=== PATIENT | female | born 1995 | race Two or more races ===

== ENCOUNTER 2025-09-21 14:40 | Emergency (ER) | payer BC, SELFPAY ==
[2025-09-21 15:03] VITALS: BP 119/74; PULSE 76; RESP 18; TEMP 36.4; O2SAT 99; BMI 25.1
--- NOTE | 2025-09-21 17:48 | ED_ITS ---
HPI - General Adult General Chief complaint: Skin/Abscess/Foreign Body Stated complaint: rash/ staph infection on butt Time Seen by Provider: 09/21/25 17:48 History of Present Illness HPI narrative: pt here with skin rash to right buttock, history of previous skin infection, she is 14 weeks , care at [facility] in [place], using 2% bactroban that she had already Visit aided by sign deaf interpreter. 30-year-old woman presenting to the emergency department with concern of a rash that has developed on her right buttock. Present now present about 3 days. It dee. She recalls on infection in the same area and looked similar. She does have extra her fallen that seems to show a collection of small blisters. She has applied some antibiotic ointment and a Band-Aid. Has a picture also showing medication taken before which looks to include acyclovir and valacyclovir. Shingles is the familiar prior diagnosis. No swabs were done for confirmation. Currently 14 weeks . No fever. Related Data Home Medications ?Medication ?Instructions ?Recorded ?Confirmed vit no.95-ferrous 1 tab PO DAILY 09/21/25 fumarate 28 mg-folic acid 800 mcg tablet () Previous Rx's ?Medication ?Instructions ?Recorded valacyclovir 1 gram tablet 1,000 mg PO TID 7 days #21 tabs 09/21/25 Allergies Allergy/AdvReac Type Severity Reaction Status Date / Time No Known Drug Allergies Allergy Verified 09/21/25 15:01 Review of Systems Status of ROS: Reports: 6 or more systems reviewed and unremarkable except as noted in History and below PFSH PFS Social History Smoking Status: Never smoker How often do you have a drink containing alcohol: never AUDIT-C Alcohol total score: 0 Non-prescribed substance use: denies use Exam Narrative: Exam Narrative: Pleasant. NAD. Skin is warm and dry. Examination of skin in question at the right mid buttock shows a collection of blisters with mild erythema surrounding them over an area about the size of a quarter. No other lesions identified. Isolated here. Const: Vital Signs, click to edit/add: Vital Signs - 24 hr 09/21/25 15:03 Temperature 97.6 F Pulse Rate [Right Pulse Oximeter] 76 Respiratory Rate 18 Blood Pressure [Ri ght Upper Arm] 119/74 Pulse Oximetry 99 Oxygen Delivery Me thod Room Air Documenting provider has reviewed patient's vital signs: yes Course Vital Signs Vital signs: Initial Vital Signs Temperature 97.6 F 09/21/25 15:03 Temperature Source Temporal Artery Scan 09/21/25 15:03 Pulse Rate 76 09/21/25 15:03 Respiratory Rate 18 09/21/25 15:03 Blood Pressure 119/74 09/21/25 15:03 Blood Pressure Mean 89 09/21/25 15:03 Blood Pressure Position Sitting 09/21/25 15:03 Pulse Oximetry 99 09/21/25 15:03 Oxygen Delivery Method Room Air 09/21/25 15:03 Vital Signs Temperature 97.6 F 09/21/25 15:03 Pulse Rate 76 09/21/25 15:03 Respiratory Rate 18 09/21/25 15:03 Blood Pressure 119/74 09/21/25 15:03 Pulse Oximetry 99 09/21/25 15:03 Oxygen Delivery Method Room Air 09/21/25 15:03 Temperature 97.6 F 09/21/25 15:03 Pulse Rate 66 09/21/25 19:13 Respiratory Rate 18 09/21/25 19:13 Blood Pressure 122/74 09/21/25 19:13 Pulse Oximetry 99 09/21/25 19:13 Oxygen Delivery Method Room Air 09/21/25 19:13 Medications Administered Medications: Discontinued Medications Generic Name Dose Route Start Last Admin Trade Name Freq PRN Reason Stop Dose Admin Valacyclovir HCl 1,000 mg 09/21/25 18:32 09/21/25 19:00 Valacyclovir Hcl 500 Mg Tablet PO 09/21/25 18:33 1,000 mg ONCE ONE Administration Medical Decision Making MDM Narrative Medical decision making narrative: I think this is indeed herpes zoster eruption. Rather small/isolated invol vement of skin. Does not looks to be folliculitis. For confirmation did offer to send viral culture specifically varicella. She would appreciate that being done. I do not see secondary cellulitis. I lanced 2 of the blisters with scalpal and collected clear liquid with viral swab. Also discussed this case with OBGYN. As expected will be treating with valacyclovir. Given dose here in the emergency department prior to departing ER. Given small area of involvement and no prior post herpetic neuralgia, I think can avoid prednisone further in this . See patient discharge plan for further discussion Yes. It does appear that you have shingles. A viral culture is pending to confirm this. Did discuss your case briefly with OBGYN on-call. They are in agreement with the treatment plan. Will be prescribing Valtrex (also known as valacyclovir) partly due to ease of dosing. Unfortunately we do not have any in [facility] and so we will give you a dose here tonight and you can continue early tomorrow morning with the script at the pharmacy. Topically could use antibiotic ointment or even aloe gel. If you need to relieve burning, can also keep some wash cloths in a basin of water in the refrigerator and apply these for some cooling affect. Watch for increasing erythema, thickening of the skin, pain, fever as this might indicate a secondary bacterial infection. Consider this lesion contagious and therefore avoid direct contact with persons who are (of course other than yourself) or persons who are otherwise immunocompromised until all lesions have crusted over Discharge Plan Discharge Clinical Impression: Herpes zoster Patient Disposition: Home, Self-Care Condition: Stable Additional Instructions: Yes. It does appear that you have shingles. A viral culture is pending to confirm this. Did discuss your case briefly with OBGYN on-call. They are in agreement with the treatment plan. Will be prescribing Valtrex (also known as valacyclovir) partly due to ease of dosing. Unfortunately we do not have any in [facility] and so we will give you a dose here tonight and you can continue early tomorrow morning with the script at the pharmacy. Topically could use antibiotic ointment or even aloe gel. If you need to relie ve burning, can also keep some wash cloths in a basin of water in the refrigerator and apply these for some cooling affect. Watch for increasing erythema, thickening of the skin, pain, fever as this might indicate a secondary bacterial infection. Consider this lesion contagious and therefore avoid direct contact with persons who are (of course other than yourself) or persons who are otherwise immunocompromised until all lesions have crusted over Prescriptions: New valacyclovir 1 gram tablet 1,000 mg PO TID 7 Days Qty: 21 1RF No Action PNV no.95-ferrous fumarate-FA [] 28 mg iron- 800 mcg tablet 1 tab PO DAILY Stand Alone Forms: MyHealth Info Instructions
--- OUTSIDE RECORDS SUMMARY | 2025-09-21 18:38 | XMS_ITS | Clinical Summary ---
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 and is used for clinical purposes. Specimen (Source)Anatomical Location / LateralityCollection Method / Volume Collection TimeReceived TimeBloodBLOOD SPECIMEN / UnknownQuest Collect / Unknown 08/20/2025 10:54 AM CST08/20/2025 10:54 AM INFORMATION TECHNOLOGY DIRECTOR Narrative Authorizing ProviderResult TypeResult StatusAntionette Jo Estis CNMLABORATORY Final ResultPerforming OrganizationAddressCity/State/ZIP CodePhone Number [facility] [address] [phone], * TREPONEMA PALLIDUM (08/20/2025 10:54 AM INFORMATION TECHNOLOGY DIRECTOR)ComponentValueRef RangeTest Method Analysis TimePerformed AtPathologist SignatureTREPONEMA PALLIDUMNon-Reactive Non-Stgzyoqe28/11/2025 7:51 PM [facility] Specimen (Source)Anatomical Location / LateralityCollection Method / Volume Collection TimeReceived TimeBloodBLOOD SPECIMEN / UnknownQuest Collect / Yzdurju8508/20/2025 10:54 AM CST08/20/2025 10:54 AM INFORMATION TECHNOLOGY DIRECTOR Narrative Authorizing ProviderResult TypeResult StatusAntioneian Osorio Estis CNMSEND OUTS Final ResultPerforming OrganizationAddressCity/State/ZIP CodePhone Number [facility] [address] [place] [address] * RUBELLA IMMUNE STATUS (08/20/2025 10:54 AM INFORMATION TECHNOLOGY DIRECTOR)ComponentValueRef RangeTest MethodAnalysis TimePerformed AtPathologist SignatureRUBELLA AB (IGG), IMMUNE STATUS5.46Zkzon1908/21/2025 2:31 PM CSTIntegrys AssetPoint DIAGNOSTICSComment: ?Index ?Interpretation ?----- ? <0.90 Not consistent with immunity ?0.90-0.99 ?Equivocal > or = 1.00 Consistent with immunity The presence of rubella IgG antibody suggests immunization or past or current infection with rubella virus. Specimen (Source)Anatomical Location / LateralityCollection Method / Volume Collection TimeReceived TimeBloodBLOOD SPECIMEN / UnknownQuest Collect / Unknown 08/20/2025 10:54 AM CST08/20/2025 10:54 AM INFORMATION TECHNOLOGY DIRECTOR Narrative Authorizing ProviderResult TypeResult StatusAntionette Jo Estis CNMSEND OUTS Final ResultPerforming OrganizationAddressCity/State/ZIP CodePhone Number [facility] [address] [address], [place] [phone] * TYPE AND SCREEN (08/20/2025 10:54 AM INFORMATION TECHNOLOGY DIRECTOR)ComponentValueRef RangeTest Method Analysis TimePerformed AtPathologist SignatureABORHB Rh Faqbnwen65/11/2025 9:24 PM [facility]-CENTRAL LAB BLOOD BANKANTIBODY SCREENNegative Bavmooog70/11/2025 9:24 PM [facility]-CENTRAL LAB BLOOD BANKSPECIMEN EXPIRATION DATE/TIME08/23/25 23:5908/20/2025 9:24 PM [facility]- CENTRAL LAB BLOOD BANKSpecimen (Source)Anatomical Location / Laterality Collection Method / VolumeCollection TimeReceived TimeBloodBLOOD SPECIMEN / UnknownQuest Collect / Htmsckx5008/20/2025 10:54 AM CST08/20/2025 10:54 AM INFORMATION TECHNOLOGY DIRECTOR Narrative Authorizing ProviderResult TypeResult StatusAntionettian Sanders CNMBLOOD BANK Final ResultPerforming OrganizationAddressCity/State/ZIP CodePhone Number [facility]-CENTRAL [facility] BLOOD BANK [address] [place] [address], [place] [phone] * HBSAG (HBS) (08/20/2025 10:54 AM INFORMATION TECHNOLOGY DIRECTOR)ComponentValueRef RangeTest Method Analysis TimePerformed AtPathologist SignatureHEPATITIS B SURFACE ANTIGEN CAJ-YITQLWXVTYR-RNTVQYFS36/12/2025 9:02 AM CSTQUEST DIAGNOSTICSComment: For additional information, please refer to http://education.[employer]/faq/ATS425 (This link is being provided for informational/ educational purposes only.) Specimen (Source)Anatomical Location / LateralityCollection Method / Volume Collection TimeReceived TimeBloodBLOOD SPECIMEN / UnknownQuest Collect / Unknown 08/20/2025 10:54 AM CST08/20/2025 10:54 AM INFORMATION TECHNOLOGY DIRECTOR Narrative Authorizing ProviderResult TypeResult StatusAntionettian Sanders CNMSEND OUTS Final ResultPerforming OrganizationAddAmerican Academic Health Systemty/State/ZIP CodePhone Number [facility] [address] [address], [place] [phone] * ANTI HCV (08/20/2025 10:54 AM INFORMATION TECHNOLOGY DIRECTOR)ComponentValueRef RangeTest MethodAnalysis TimePerformed AtPathologist SignatureHEPATITIS C ANTIBODYNON-REACTIVE NON-LNKFXBVS58/12/2025 9:51 AM CSTQUEST DIAGNOSTICSComment: HCV antibody was non-reactive. There is no laboratory evidence of HCV infection. In most cases, no further action is required. However, if recent HCV exposure is suspected, a test for HCV RNA (test code 52603) is suggested. For additional information please refer to http://education.[employer]orc.[employer]/faq/ACS27z0 (This link is being provided for informational/ educational purposes only.) Specimen (Source)Anatomical Location / LateralityCollection Method / Volume Collection TimeReceived TimeBloodBLOOD SPECIMEN / UnknownQuest Collect / Unknown 08/20/2025 10:54 AM CST08/20/2025 10:54 AM INFORMATION TECHNOLOGY DIRECTOR Narrative Authorizing ProviderResult TypeResult StatusAntionedavid Sanders CNMSEND OUTS Final ResultPerforming OrganizationAddressCity/State/ZIP CodePhone Number [facility] [address] [place] [phone], [place] [phone] * (ABNORMAL) CBC W PLT NO DIFF (08/20/2025 10:54 AM INFORMATION TECHNOLOGY DIRECTOR)ComponentValueRef Range Test MethodAnalysis TimePerformed AtPathologist SignatureWHITE BLOOD CELL COUNT5.53.8 - 10.8 Thousand/uL08/20/2025 11:06 AM [facility] CELL COUNT4.893.80 - 5.10 Million/uL08/20/2025 11:06 AM [facility]ITALHEMOGLOBIN11.6(L)11.7 - 15.5 g/dL08/20/2025 11:06 AM [facility] NPCOKLTWRV84.735.0 - 45.0 %08/20/2025 11:06 AM [facility]OSPITALMCV75.1(L)80.0 - 100.0 fL08/20/2025 11:06 AM [facility]OSPITALMCH23.7(L)27.0 - 33.0 pg08/20/2025 11:06 AM [facility] WESTMCHC31.6(L)32.0 - 36.0 g/dL08/20/2025 11:06 AM [facility]PITALComment: For adults, a slight decrease in the calculated MCHC value (in the range of 30 to 32 g/dL) is most likely not clinically significant; however, it should be interpreted with caution in correlation with other red cell parameters and the patient's clinical condition. RDW16.1(H)11.0 - 15.0 %08/20/2025 11:06 AM [facility] HOSPITALPLATELET [id number] - 400 Thousand/uL08/20/2025 11:06 AM [facility]OSPITALMPV9.47.5 - 12.5 fL08/20/2025 11:06 AM [facility]ENTERpecimen (Source)Anatomical Location / LateralityCollection Method / VolumeCollection TimeReceived TimeBloodBLOOD SPECIMEN / UnknownQuest Collect / Qwiwnat6208/20/2025 10:54 AM CST08/20/2025 10:54 AM INFORMATION TECHNOLOGY DIRECTOR Narrative Authorizing ProviderResult TypeResult StatusAntionette Jo Sanders CNEMATOLOGY Final ResultPerforming OrganizationAddressCity/State/ZIP CodePhone Number [facility] [address] [place] [address], [place] [phone] [facility] [address] [place] [address], [place] * ANTI HIV 1/2 (08/20/2025 10:54 AM INFORMATION TECHNOLOGY DIRECTOR)ComponentValueRef RangeTest Method Analysis TimePerformed AtPathologist SignatureHIV FINAL INTERPRETATOINHIV HKBIUWLO21/12/2025 9:51 AM CSTQUEST DIAGNOSTICSComment: HIV-1 antigen and HIV-1/HIV-2 antibodies were not detected. There is no laboratory evidence of HIV infection. HIV AG/AB, 4TH CQLTOG-SNFJISHNQMT-XNPAJGVE25/12/2025 9:51 AM CSTQUEST DIAGNOSTICSSpecimen (Source)Anatomical Location / LateralityCollection Method / VolumeCollection TimeReceived TimeBloodBLOOD SPECIMEN / UnknownQuest Collect / Dumwlql5908/20/2025 10:54 AM CST08/20/2025 10:54 AM INFORMATION TECHNOLOGY DIRECTOR Narrative Authorizing ProviderResult TypeResult StatusAntionette Jo Estis CNMSEND OUTS Final ResultPerforming OrganizationAddressCity/State/ZIP CodePhone Number [facility] [address] [phone], * DNA SCREEN SEND OUT (08/20/2025 12:00 AM INFORMATION TECHNOLOGY DIRECTOR)Specimen (Source) Anatomical Location / LateralityCollection Method / VolumeCollection Time Received TimeOther (Other) Narrative Authorizing ProviderResult TypeResult StatusAntionette Jo Estis CNMSEND OUTS Final Result * US OB 1ST TRI SINGLE TA (08/06/2025 11:57 AM CDT)Anatomical RegionLaterality ModalityPREGNANCY, 1ST TRIMESTERUltrasoundSpecimen (Source) Anatomical Location / LateralityCollection Method / VolumeCollection Time Received Time Impressions 08/06/2025 12:44 PM CDT Reed intrauterine with cardiac activity. Ultrasound EDC is 03/13/2026 with a gestational age of 8 weeks 5 days. No adnexal masses are seen. A small subchorionic hematoma is noted. Follow up is not required unless clinically indicated Ale Washington, 08/06/2025 12:43 PM [facility] [address] [facility] [address] Narrative 08/06/2025 12:44 PM CDT Table formatting from the original result was not included. For Patients: Results are automatically released to your [employer] account once available, in compliance with federal regulations. This means that you may see your results before your provider has had a chance to review them. Please allow 2-3 business days for your provider to comment on the results. Early Ultrasound Date of exam: 08/06/2025 Indication for exam: 1. Abdominal bloating ?? Requesting Provider: Linnette Gonzalez NP TECHNIQUE: Transabdominal scan was performed. Transvaginal scan was not performed. FINDINGS: The uterus is normal size. The myometrium is homogeneous. There are no myomas noted. The right ovary is normal in appearance. It contains a corpus luteal cyst that measures 1.9 X 1.3 X 1.4 cm. The left ovary is normal in appearance. Free fluid in the cul de sac: none There is a single, intrauterine . The crown-rump length is 2 cm. These measurements correspond to a 8 week 5 day gestation with an EDC of ?? 03/13/2026. The yolk sac is identified, appears normal, and measures 2.6 mm. heart activity is present with a rate of 179 beats per minute. There is a 2 x 0.8 x 1.3 cm fluid collection adjacent to the gestational sac. Authorizing ProviderResult TypeResult StatusRachel Di Gonzalez NPUSFinal Result * ALLEY TENDER THIN PREP PAP SCREEN IMAGED [[id number]] (07/04/2025 10:20 AM CDT)Component ValueRef RangeTest MethodAnalysis TimePerformed AtPathologist SignatureCase ReportGynecologic Cytology Report ? Case: [id number] ? Authorizing Provider: ??Linnette Gonzalez NP Collected: ? 07/04/2025 1020 ? [facility]Received: ?07/04/2025 1327 ? [facility] ? First Screen: ?Aleman, Catherine ? Rescreen: ?Mena Cerda ? Specimen: ?ALLEY TENDER ThinPrep Vial Screening, Cervical ? 07/12/2025 8:18 AM [facility]-CENTRAL LABORATORY INTERPRETATION/RESULTNEGATIVE FOR INTRAEPITHELIAL LESION OR MALIGNANCY (NIL) (none)07/12/2025 8:18 AM [facility]-CENTRAL LABORATORY at 0818 CDTSPECIMEN ADEQUACY Satisfactory for evaluation Endocervical component uchkfrk6507/12/2025 8:18 AM [facility] LAB[facility]- CENTRAL LABORATORYHPV REQUESTHPV and PAP07/12/2025 8:18 AM [facility] LAB[facility]-CENTRAL LABORATORYDate of LMP9//538703 8:18 AM [facility]ENTRAL LABORATORYLast Pap Date21 8:18 AM CDT [facility] LABORATORYLast Pap JlvulsIBN40/03/2025 8:18 AM [facility] LABORATORYAbnormal Pap or Flaxton Bx in last 5 lstkcTj3207/12/2025 8:18 AM [facility] Menstrual StatusRegular Mhgtmis4807/12/2025 8:[address] [facility] LABORATORYColp Bx Done YmvfeAo6007/12/2025 8:18 AM [facility] LABORATORYAdditional InformationNone given07/12/2025 8:18 AM [facility] LABORATORYComment: Cytology is screened at [facility] - [address], [place] [address] and [facility] - [address], [place] [address] [address] [facility] - [address] [place] [address] Interpreted at [facility] - [address], [place] [address] Automated DwxltuUtebxgqdyf43/03/2025 8:18 AM [facility] LABORATORYComment:Specimen processed successfully by automated electrical & instrumentation supervisor device, ThinPrep Imaging System, [employer]ANCILLARY TESTING GYNHPV Ordered, Please see separate trsvan3507/12/2025 8:18 AM [facility] LABORATORYNoteThe pap test is a screening technique, not a diagnostic procedure. It is used primarily to screen for squamous cancers and precursor lesions. Published studies have shown that it is subject to both false negative and false positive results. The pap test should not be used as the sole means to diagnose or exclude pre-malignant and malignant lesions.07/12/2025 8:18 AM [facility] LABORATORYSpecimen (Source)Anatomical Location / LateralityCollection Method / VolumeCollection TimeReceived TimeOther (Cervical) Non-Blood / Quucgmk5107/04/2025 10:20 AM CDT07/04/2025 1:27 PM CDT Narrative Authorizing ProviderResult TypeResult StatusRachel Magdalene Carlos EDUCATIONAL DIRECTOR PATHOLOGY/CYTOLOGYFinal ResultPerforming OrganizationAddressCity/State/ZIP Code Phone Number [facility] [address] [place] [address], * HPV HIGH RISK (07/04/2025 10:20 AM CDT)ComponentValueRef RangeTest Method Analysis TimePerformed AtPathologist SignatureTYPE 16NegativeNegative 07/10/2025 4:54 PM [facility] LAB[facility]-CENTRAL LABORATORYTYPE 18 NlurounwVficxbzi85/01/2025 4:54 PM CDMER[facility]SCENTRAL LABORATORYOTHER HIGH RISK DHWBYOyybkbqlDkkqspfe95/01/2025 4:54 PM CDMER[facility]AKSCENTRAL LABORATORYSpecimen (Source)Anatomical Location / LateralityCollection Method / VolumeCollection TimeReceived TimeOther (Cervical)Non-Blood / Gfxnnrn8607/04/2025 10:20 AM CDT07/05/2025 9:47 AM CDT Narrative [facility] - 07/10/2025 4:54 PM CDT HPV types 16, 18, 31, 33, 35, 39, 45, 51, 52, 56, 58, 59, 66 and 68 DNA were undetectable or below the pre-set threshold. Methodology: Sherri Palmer 4800 HPV Test Authorizing ProviderResult TypeResult StatusRachel Di Gonzalez NPMICROBIOLOGY Final ResultPerforming OrganizationAddressCity/State/ZIP CodePhone Number [facility] [address] [place] [address], from Last 3 Months Insurance Advance Directives * Full Code (Latest Code Status on File) Date ActivatedDate WciehdulfskBofidudi94/6/2023 10:11 AM11 4:52 PM QuestionAnswerCommentsCode Status Discussion:* Reviewed Preferences * Full Code Date ActivatedDate GdedbnkrsieHvpdcemw87/27/2023 12:48 PM10 6:45 PM QuestionAnswerCommentsCode Status Discussion:* Reviewed Preferences Care Teams Team MemberRelationshipSpecialtyStart DateEnd Date Marya Lozano PCP - General04/30/22
[2025-09-21] MEDS: VALACYCLOVIR HCL 500 MG TABLET 1000 MG PO (19:00)
[2025-09-21 19:13] VITALS: BP 122/74; PULSE 66; RESP 18; O2SAT 99
== END 2025-09-21 19:14 | disposition home or self-care (01) ==
PROVIDERS: Emergency Provider Family Medicine
DX: B02.9 Zoster without complications (principal)
CPT/HCPCS: 36415; 86787; 99283; 99284; A9270